=== PATIENT | female | born 1975 | race Hispanic/Latino ===

== ENCOUNTER 2018-06-23 22:58 | Emergency (ER) | payer OTHER | END 2018-06-23 23:39 | disposition left against medical advice (07) | LOC: EDH 22:58 | DX: K08.89 Other specified disorders of teeth and supporting structures (principal); Z53.21 Procedure and treatment not carried out due to patient leaving prior to being seen by health care provider; Z72.0 Tobacco use ==

== ENCOUNTER 2018-07-08 21:35 | Emergency (ER) | payer OTHER ==
[2018-07-08] MEDS ORDERED: LIDOCAINE HCL-MPF 1% 2ML VIAL ONE (22:14)
[2018-07-08] MEDS ORDERED: CEFTRIAXONE SODIUM 1 GM ONE (22:14)
[2018-07-08] MEDS ORDERED: KETOROLAC TROMETHAMINE 60 MG/2 ML VIAL ONE (22:14)
== END 2018-07-08 23:04 | disposition home or self-care (01) ==
LOC: EDH 21:35
DX: K02.9 Dental caries, unspecified (principal); Z91.02 Food additives allergy status; Z91.018 Allergy to other foods; Z72.0 Tobacco use
CPT/HCPCS: 81025; 96372 ×2; 99283; J0696; J1885; J3490

== ENCOUNTER 2019-12-28 15:39 | Emergency (ER) | payer OTHER, SELFPAY | END 2019-12-28 17:38 | disposition home or self-care (01) | LOC: EDH 15:39 | DX: R51 Headache (principal); R05 Cough; R09.81 Nasal congestion; Z20.828 Contact with and (suspected) exposure to other viral communicable diseases; Z88.8 Allergy status to other drugs, medicaments and biological substances | CPT/HCPCS: 36415; 71045; 81025; 99284; U0003 ==

== ENCOUNTER 2020-04-30 17:03 | Emergency (ER) | payer OTHER ==
[2020-04-30] MEDS ORDERED: KETOROLAC TROMETHAMINE 60 MG/2 ML VIAL ONE (18:14)
== END 2020-04-30 18:48 | disposition home or self-care (01) ==
LOC: EDH 17:03
DX: K02.9 Dental caries, unspecified (principal); Z91.013 Allergy to seafood; Z91.018 Allergy to other foods
CPT/HCPCS: 96372; 99283; J1885

== ENCOUNTER 2020-10-13 09:42 | Emergency (ER) | payer SELFPAY ==
[2020-10-13] MEDS ORDERED: DICYCLOMINE HCL 20 MG TAB ONE (10:01)
[2020-10-13] MEDS ORDERED: ACETAMINOPHEN-CODEINE 300/30MG TAB ONE (10:02)
[2020-10-13 10:07] LABS: BASOPHILS % (AUTO) 0.8 % (0.0-5.0); EOSINOPHILS % (AUTO) 3.7 % (0.0-8.0); HEMATOCRIT 33.1 % (36-48); LYMPHOCYTES % (AUTO) 26.6 % (21.0-51.0); MEAN CORPUSCULAR HEMOGLOBIN 20.5 pg (27.0-33.0); MEAN CORPUSCULAR HGB CONC 28.1 g/dL (32.0-36.0); MEAN CORPUSCULAR VOLUME 73.1 fL (79-99); MONOCYTES % (AUTO) 9.7 % (3.0-13.0); PLATELET COUNT (AUTO) 199 K/uL (130-400); RED BLOOD CELL COUNT(AUTO) 4.53 MIL/uL (4.00-5.50); RED CELL DISTRIBUTION WIDTH 19.6 % (11.0-15.5); WHITE BLOOD COUNT (AUTO) 6.2 K/uL (4.8-10.8)
[2020-10-13 10:17] LABS: CREATININE 0.8 mg/dL (0.5-1.5); POTASSIUM 3.8 mmol/L (3.5-5.1)
[2020-10-13 10:21] LABS: ALBUMIN 3.4 g/dL (3.5-5.0); BILIRUBIN,TOTAL 0.3 mg/dL (0.2-1.0); TOTAL PROTEIN, SERUM 7.5 g/dL (6.0-8.3)
[2020-10-13 10:23] LABS: INR 1.03 (0.85-1.15); PARTIAL THROMBOPLASTIN TIME 23.4 SEC (26.3-35.5); PROTHROMBIN TIME 10.7 SEC (9.6-11.6)
== END 2020-10-13 11:24 | disposition home or self-care (01) ==
LOC: EDH 09:42
DX: K80.80 Other cholelithiasis without obstruction (principal); Z98.890 Other specified postprocedural states; Z72.0 Tobacco use; Z88.6 Allergy status to analgesic agent; Z91.018 Allergy to other foods
CPT/HCPCS: 36415; 76700; 80053; 82150; 83690; 85025; 85610; 85730

== ENCOUNTER 2023-06-12 15:28 | Emergency (ER) | payer OTHER ==
[~2023-06-12] VITALS: Ht 172.7 cm; Wt 90.7 kg
[~2023-06-12 15:28] MED LIST: IBUP-1493 PO
[2023-06-12 18:27] LABS: SARS-CoV-2, RNA, NAAT NEGATIVE SARS CoV-2 (NEGATIVE)
[2023-06-12 18:30] LABS: RAPID GROUP A STREP positive (NEGATIVE)
[2023-06-12 18:38] LABS: INFLUENZA TYPE A Negative For Type A (NEGATIVE); INFLUENZA TYPE B Negative For Type B (NEGATIVE)
[2023-06-12] MEDS ORDERED: LORA10TA7 PO (18:58)
[2023-06-12] MEDS ORDERED: AMOX500T2 PO (18:58)
[2023-06-12] MEDS ORDERED: GUAI600T50 PO (18:58)
[2023-06-12 19:12] VITALS: BP 135/68; PULSE 80; RESP 18; O2SAT 98
== END 2023-06-12 19:19 | disposition home or self-care (01) ==
LOC: EDH 15:28
DX: J02.0 Streptococcal pharyngitis (principal); Z20.822 Contact with and (suspected) exposure to COVID-19; Z98.890 Other specified postprocedural states; Z88.8 Allergy status to other drugs, medicaments and biological substances
CPT/HCPCS: 87635; 87804; 87880